=== PATIENT | male | born 1980 | race Hispanic/Latino ===

== ENCOUNTER 2023-04-17 08:45 | Day surgery (SDC) | payer SELFPAY ==
[~2023-04-17] VITALS: Ht 162.6 cm; Wt 80.7 kg
[~2023-04-17 08:45] MED LIST: AMOXICILLIN875 MG PO; CORTISPORIN OTI10 M1 OT; IBUPROFEN600 MG PO; NO; ULTRAM50 MG PO
[2023-04-17] MEDS ORDERED: SODIUM CHLORIDE 0.9% 100 ML IV ONE (09:12)
[2023-04-17] MEDS ORDERED: ceFAZolin Sodium 2 GM/VIAL SDV ONE (09:12)
[2023-04-17] MEDS ORDERED: FAMOTIDINE 10MG/ML 2ML SDV IV ONE (09:12)
[2023-04-17] MEDS ORDERED: LACTATED RINGER'S 1,000 ML IV ONE ×4 (09:13→14:21)
[2023-04-17] MEDS ORDERED: SODIUM CHLORIDE 20 ML/VIAL SDV ONE (09:38)
[2023-04-17] MEDS ORDERED: ACETAMINOPHEN 100 ML IV ONE (12:08)
[2023-04-17] MEDS ORDERED: HYDROmorphone HCL 2 MG/AMP ONE (12:08)
[2023-04-17] MEDS ORDERED: PERCOCET 5/321 COMBO PO (12:12)
[2023-04-17] MEDS ORDERED: SODIUM CHLORIDE 1,000 ML BTL IR ONE (13:13)
[2023-04-17] MEDS ORDERED: STERILE WATER FOR IRRIGATION 1,000 ML BTL IR ONE (13:13)
[2023-04-17] MEDS ORDERED: KETOROLAC TROMETHAMINE 30 MG/ML SDV IV ONE (13:53)
[2023-04-17] MEDS ORDERED: LIDOCAINE HCL 2% 2ML SDV IV ONE (13:53)
[2023-04-17] MEDS ORDERED: SUGAMMADEX SODIUM 200 MG/2 ML SDV IV ONE (13:53)
[2023-04-17] MEDS ORDERED: PROPOFOL 200 MG/20 ML VIAL IV ONE (13:53)
[2023-04-17] MEDS ORDERED: ROCURONIUM BROMIDE 10 MG/ML 5ML VIAL IV ONE (13:53)
[2023-04-17] MEDS ORDERED: GLYCOPYRROLATE 0.2 MG/ML IV ONE (13:53)
[2023-04-17] MEDS ORDERED: LACTATED RINGER'S 1,000 ML BAG IV ONE (13:53)
[2023-04-17] MEDS ORDERED: TAMSULOSIN HCL 0.4 MG CAP PO ONE (14:40)
[2023-04-17] MEDS ORDERED: ONDANSETRON HCl 4 MG/2 ML SDV ONE (14:43)
[2023-04-17 14:45] VITALS: BP 128/85
== END 2023-04-17 15:01 | disposition home or self-care (01) | DRG 351 ==
LOC: ORM 08:45
PROVIDERS: ATTEND Surgery
PROC: 0YU50JZ Supplement Right Inguinal Region with Synthetic Substitute, Open Approach (ICD-10-PCS; principal; 2023-04-17)
DX: K40.90 Unilateral inguinal hernia, without obstruction or gangrene, not specified as recurrent (principal); N99.71 Accidental puncture and laceration of a genitourinary system organ or structure during a genitourinary system procedure; Y83.2 Surgical operation with anastomosis, bypass or graft as the cause of abnormal reaction of the patient, or of later complication, without mention of misadventure at the time of the procedure; D17.6 Benign lipomatous neoplasm of spermatic cord
CPT/HCPCS: J0131; J0690